=== PATIENT | female | born 1985 | race African-American/Black ===

== ENCOUNTER 2017-06-18 01:46 | Emergency (ER) | payer SELFPAY ==
[~2017-06-18] VITALS: Ht 165.1 cm; Wt 64.0 kg
[2017-06-18] MEDS ORDERED: MORPHINE SULFATE 4 MG/ML CPJ (NOT FOR IM USE) IV ONE (02:45)
[2017-06-18] MEDS ORDERED: MIDAZOLAM HCL 2 MG/2 ML VIAL IV ONE (02:45)
[2017-06-18 06:25] VITALS: BP 102/54
== END 2017-06-18 07:16 | disposition home or self-care (01) ==
LOC: ER 01:46
DX: S83.005A Unspecified dislocation of left patella, initial encounter (principal); X50.0XXA Overexertion from strenuous movement or load, initial encounter; Y93.89 Activity, other specified; Y92.89 Other specified places as the place of occurrence of the external cause; Y99.8 Other external cause status
CPT/HCPCS: 27560; 73562; 99152; 99285; J2250; J2270; J7040; Z7610